=== PATIENT | female | born 1995 | race African-American/Black ===

== ENCOUNTER 2024-01-28 23:50 | Emergency (ER) | payer MEDICAID ==
[~2024-01-28] VITALS: Ht 185.4 cm; Wt 102.1 kg
[2024-01-29 00:20] VITALS: BP_SYST 124; PULSE 89; RESP 18; TEMP 98.3; O2SAT 99
[2024-01-29 00:41] LABS: BILIRUBIN,URINE NEGATIVE (NEGATIVE); BLOOD, URINE 3+ (NEGATIVE); CLARITY/URINE CLOUDY (CLEAR); COLOR,URINE YELLOW (YELLOW); GLUCOSE,URINE NEGATIVE (NEGATIVE); KETONES,URINE NEGATIVE (NEGATIVE); LEUKOCYTE ESTERASE ,URINE 2+ (NEGATIVE); NITRITE, URINE POSITIVE (NEGATIVE); PROTEIN URINE 2+ (NEGATIVE)
[2024-01-29 01:05] LABS: WBC,URINE >100 /HPF (0-3)
[2024-01-29 01:06] LABS: BACTERIA,URINE MANY /HPF (None Seen)
[2024-01-29] MEDS ORDERED: SULF1TAB48 PO (01:16)
[2024-01-29] MEDS: SULFAMETHOXAZOLE/TRIMETHOPR DS 1 TABLET PO ONE (01:22)
[2024-01-29 01:36] VITALS: BP_SYST 129; PULSE 81; RESP 18; TEMP 98.3; O2SAT 99
== END 2024-01-29 01:36 | disposition home or self-care (01) ==
LOC: SED 23:50
DX: N39.0 Urinary tract infection, site not specified (principal)
CPT/HCPCS: 81000; 81001; 81015; 87086; 99283